=== PATIENT | male | born 2005 | race Caucasian/White ===

== ENCOUNTER 2023-03-09 21:00 | Emergency (ER) | payer OTHER, SELFPAY ==
[2023-03-09 21:13] VITALS: BP 129/71; PULSE 80; RESP 18; TEMP 36.8; O2SAT 100; BMI 22.7
--- NOTE | 2023-03-09 22:14 | ED_ITS ---
HPI - Wound/Laceration General Chief Complaint: Wound/Laceration Stated Complaint: Eye brow lac/Work inj Time Seen by Provider: 03/09/23 21:25 Source: patient Mode of arrival: ambulatory History of Present Illness HPI narrative: 18-year-old male who struck his head without loss of consciousness while at work but involved a cut above his left eyebrow and he is unsure of his last tetanus. Related Data Allergies Allergy/AdvReac Type Severity Reaction Status Date / Time No Known Allergies Allergy Verified 03/09/23 21:17 Review of Systems Review of Systems: Pertinent positives and negatives as stated in HPI [facility] Past Medical History Source: nursing notes reviewed Social History Social History Advance Directives: No Advance Directives Information Provided: No Physical Exam Vital Signs: Vital Signs: Last Vital Signs Temp 98.2 F 03/09/23 21:13 Pulse 80 03/09/23 21:13 Resp 18 03/09/23 21:13 BP 129/71 03/09/23 21:13 Pulse Ox 100 03/09/23 21:13 O2 Del Method Room Air 03/09/23 21:13 BMI result Body Mass Index 22.7 VITAL SIGNS: Reviewed. GENERAL: Well developed, well nourished, in no acute distress. HEAD: Normocephalic/2 cm laceration to the medial aspect of the left eyebrow, currently hemostatic EYES: PERRLA, EOMI LUNGS: Normal breath sounds. No adventitious sounds or accessory muscle use. SpO2<100> CARDIOVASCULAR: Regular rate and rhythm without noted murmurs ABDOMEN: Soft, non-tender, non-distended with bowel sounds. MUSCULOSKELETAL: No tenderness, deformities, or effusions noted on gross inspection. EXTREMITIES: No cyanosis, clubbing or edema. SKIN: Inspection of the skin reveals no rashes NEUROLOGIC: Alert and oriented x 4. Strength and sensation to light touch were grossly intact x 4. Medical Decision Making Medical Decision Making MDM Narrative: 18-year-old male with history and clinical presentation consistent with laceration left eyebrow sustained when he struck his head without loss of consciousness while at work. Three sutures will put in place he received combination analgesics and and then was discharged home in stable condition. Patient received a Tdap today. Differential Diagnosis Please see the discussion above Procedures Laceration Laceration 1: Site: face Side (If applicable): left Size (cm): 2 Description: linear Depth: simple, single layer Local Anesthetic: lidocaine 1% Amount of anesthesia used (mL): 1 Pre-repair: wound explored, irrigated extensively and deep structures intact Skin layer closed with: other Size (cm): 5-0 Number of sutures: 3 Technique: simple, interrupted Discharge Plan Discharge Clinical Impression: Laceration Patient Disposition: Home, Self-Care Instructions: Care For Your Stitches (ED), Facial Laceration (ED) Additional Instructions: 1. Please take Tylenol and or ibuprofen as needed for pain control. You may apply ice to unexposed skin for 5 minutes as needed. 2. You may use soap and water to cleanse area but then blot dry immediately afterwards. 3. Can either come back to the emergency room ago to your primary care provider for removal of 3 sutures in 5-7 days. Return to the ER for any worsening symptoms. Referrals: Bobby Hernandez MD [Primary Care Provider] - (3 5-0 Prolene sutures need to be removed from left eyebrow)
[2023-03-09] MEDS: Diphth,Pertus(ACell),Tet Adult 0.5 ML SYRINGE IM (22:27)
--- NOTE | 2023-03-09 22:30 | PC.NURSE ---
pt tetanus updated per JAN VIS given
[2023-03-09] MEDS: Ibuprofen 400 MG TABLET PO (22:36)
[2023-03-09] MEDS: Acetaminophen 325 MG TABLET 975 MG PO (22:36)
== END 2023-03-09 22:55 | disposition home or self-care (01) ==
PROVIDERS: Emergency Provider Student in an Organized Health Care Education/Training Program; PCP Pediatrics
DX: S01.112A Laceration without foreign body of left eyelid and periocular area, initial encounter (principal); W22.09XA Striking against other stationary object, initial encounter; Y93.89 Activity, other specified; Y92.59 Other trade areas as the place of occurrence of the external cause; Y99.0 Civilian activity done for income or pay
CPT/HCPCS: 12001; 12011; 90471; 90715; 99283; 99284